=== PATIENT | female | born 1935 | race Caucasian/White ===

== ENCOUNTER 2023-05-21 13:52 | Inpatient (IN) | payer OTHER ==
[2023-05-21 14:26] VITALS: BMI 28.5
[2023-05-21] MEDS ORDERED: SODIUM CHLORIDE 0.9% 500 ML INFUS.BAG IV ONE (14:44)
[2023-05-21] MEDS ORDERED: PIPERACILLIN/TAZOB 4.5 GM 4.5 GM in DEXTROSE 5%-WATER 100 ML IVPB ONE (14:48)
[2023-05-21] MEDS ORDERED: ACETAMINOPHEN 1000 MG/100 ML BAG IVPB ONE (14:52)
[2023-05-21] MEDS ORDERED: VANCOMYCIN 1 GM in D5W (PRE-DOCKED) 1,000 MG/250 ML (RESTRICTED TO ID ONLY IVPB ONE (14:52)
[2023-05-21 15:51] LABS: VENOUS BASE EXCESS 2.5 mmol/L (-2-2); VENOUS PCO2 45.7 mmHg (38-52); VENOUS PH 7.4 (7.310-7.410)
[2023-05-21 15:53] LABS: BASO % 0.2 % (0-2.0); EOS % 1.3 % (0-4.5); HEMATOCRIT 26.7 % (32.4-45.2); HEMOGLOBIN 8.5 GM/dL (10.7-15.3); LYMPH % 18.2 % (8-40); MCH 23.9 pg (25.7-33.7); MCHC 31.7 g/dl (32.0-36.0); MEAN CELL VOLUME 75.4 fl (80-96); MEAN PLT VOLUME 8.3 fl (7.5-11.1); MONO % 10.6 % (3.8-10.2); NEUT % 69.7 % (42.8-82.8); PLATELET COUNT 274 10^3/uL (134-434); RBC 3.54 M/mm3 (3.60-5.2); RDW 15.5 % (11.6-15.6); WHITE BLOOD COUNT 7.8 K/mm3 (4.0-10.0)
[2023-05-21] MEDS ORDERED: ACETAMINOPHEN INJECTION 100 ML IVPB ONE (15:53)
[2023-05-21] MEDS ORDERED: PIPERACILLIN/TAZOB 3.375 GM 3.375 GM/50 ML BAG IVPB ONE (15:54)
[2023-05-21] MEDS ORDERED: PIPERACILLIN/TAZOB 4.5 GM 4.5 GM/100 ML BAG IVPB ONE (15:55)
[2023-05-21 16:21] LABS: INR 1.06 (0.83-1.09); PROTHROMBIN TIME (PATIENT) 12.3 SEC (9.7-13.0)
[2023-05-21 16:23] LABS: EPI CELLS 7 /uL (0-25.1); HYALINE CASTS 0 /uL (0-3.1); PH,URINE 5.5 (5.0-8.0); URINE APPEARANCE CLEAR; URINE BACTERIA 7894 /uL (0-1359); URINE BILIRUBIN NEGATIVE (NEGATIVE); URINE COLOR DK YELLOW; URINE GLUCOSE (UA) 3+ (NEGATIVE); URINE KETONE NEGATIVE (NEGATIVE); URINE LEUK ESTERASE NEGATIVE (NEGATIVE); URINE NITRITE POSITIVE (NEGATIVE); URINE PROTEIN NEGATIVE (NEGATIVE); URINE RBC 8 /uL (0-23.9); URINE UROBILINOGEN 0.2 mg/dL (0.2-1.0); URINE WBC 23 /uL (0-25.8)
[2023-05-21 16:24] LABS: ACTIVATED PTT 28.9 SECONDS (25.2-36.5)
[2023-05-21 16:30] LABS: POTASSIUM 4.3 mmol/L (3.5-5.1)
[2023-05-21 16:31] LABS: CALCIUM 8.9 mg/dL (8.5-10.1)
[2023-05-21 16:32] LABS: ALBUMIN 2.6 g/dl (3.4-5.0); BLOOD UREA NITROGEN 16.2 mg/dL (7-18)
[2023-05-21 16:35] LABS: CREATININE 0.7 mg/dL (0.55-1.3)
[2023-05-21 16:36] LABS: BILIRUBIN,TOTAL 0.2 mg/dL (0.2-1); TOT PROT 6.6 g/dl (6.4-8.2)
[2023-05-21] MEDS ORDERED: VANCOMYCIN/WATER FOR INJ (PEG) 1,000 MG/200 ML BAG IVPB ONE ×2 (18:07→18:46)
[2023-05-21] MEDS ORDERED: LIDOCAINE 1%/EPI 1:100000 (50 ML MULTI DOSE VIAL) INF ONE (18:32)
[2023-05-21] MEDS ORDERED: LIDOCAINE 1%/EPI 1:100000 (50 ML MULTI DOSE VIAL) ONE (18:42)
[2023-05-21] MEDS: ATORVASTATIN CA 80 MG TABLET (FP) PO SCH (23:47)
[2023-05-21] MEDS: risperiDONE 0.5 MG TABLET PO SCH (23:47)
[2023-05-22] MEDS: PIPERACILLIN/TAZOB 4.5 GM 4.5 GM in DEXTROSE 5%-WATER 100 ML IVPB SCH ×3 (02:32→17:02)
[2023-05-22] MEDS: INSULIN SLIDING SCALE (NOVOLOG) 1 VIAL SQ SCH ×4 (06:07→21:46)
[2023-05-22] MEDS ORDERED: VANCOMYCIN/WATER FOR INJ (PEG) 1,000 MG/200 ML BAG IVPB SCH (07:00)
[2023-05-22 09:49] LABS: BASO % 0.2 % (0-2.0); EOS % 3.4 % (0-4.5); HEMATOCRIT 25.3 % (32.4-45.2); HEMOGLOBIN 8.2 GM/dL (10.7-15.3); LYMPH % 26.3 % (8-40); MCH 24.5 pg (25.7-33.7); MCHC 32.2 g/dl (32.0-36.0); MEAN PLT VOLUME 8.3 fl (7.5-11.1); MONO % 7.3 % (3.8-10.2); NEUT % 62.8 % (42.8-82.8); PLATELET COUNT 276 10^3/uL (134-434); RBC 3.33 M/mm3 (3.60-5.2); RDW 15.9 % (11.6-15.6); WHITE BLOOD COUNT 6.6 K/mm3 (4.0-10.0)
[2023-05-22] MEDS: MAGNESIUM OXIDE 400 MG TABLET (FP) PO SCH (10:05)
[2023-05-22] MEDS: ENALAPRIL MALEATE 10 MG TABLET PO SCH (10:05)
[2023-05-22] MEDS: VITAMIN B COMPLEX W/C COMBO TABLET (FP) PO SCH (10:05)
[2023-05-22] MEDS: ATENOLOL 25 MG TABLET (FP) PO SCH (10:05)
[2023-05-22 10:08] LABS: POTASSIUM 4.1 mmol/L (3.5-5.1)
[2023-05-22 10:10] LABS: ALBUMIN 2.4 g/dl (3.4-5.0); CALCIUM 8.7 mg/dL (8.5-10.1)
[2023-05-22 10:11] LABS: BLOOD UREA NITROGEN 10.4 mg/dL (7-18)
[2023-05-22 10:13] LABS: CREATININE 0.6 mg/dL (0.55-1.3)
[2023-05-22 10:15] LABS: BILIRUBIN,TOTAL 0.3 mg/dL (0.2-1); TOT PROT 6.1 g/dl (6.4-8.2)
[2023-05-22] MEDS ORDERED: ACETAMINOPHEN 1000 MG/100 ML BAG IVPB PRN (11:54)
[2023-05-22] MEDS ORDERED: INSULIN (LEVEMIR) 100 UNITS/ML UNITS SQ ONE (12:00)
[2023-05-22] MEDS: ENOXAPARIN NA (PORCINE) 40 MG/0.4 ML DISP.SYRIN SQ SCH (13:38)
[2023-05-22 16:10] LABS: POTASSIUM 4.1 mmol/L (3.5-5.1)
[2023-05-22 16:12] LABS: CALCIUM 8.4 mg/dL (8.5-10.1)
[2023-05-22 16:13] LABS: ALBUMIN 2.2 g/dl (3.4-5.0)
[2023-05-22 16:16] LABS: CREATININE 0.9 mg/dL (0.55-1.3)
[2023-05-22 16:18] LABS: BILIRUBIN,TOTAL 0.2 mg/dL (0.2-1)
[2023-05-22] MEDS: VANCOMYCIN/WATER FOR INJ (PEG) 1,000 MG/200 ML BAG IVPB SCH (18:49)
[2023-05-22] MEDS: ATORVASTATIN CA 80 MG TABLET (FP) PO SCH (21:46)
[2023-05-22] MEDS: risperiDONE 0.5 MG TABLET PO SCH (21:46)
[2023-05-23] MEDS: PIPERACILLIN/TAZOB 4.5 GM 4.5 GM in DEXTROSE 5%-WATER 100 ML IVPB SCH ×3 (02:23→17:42)
[2023-05-23] MEDS: VANCOMYCIN/WATER FOR INJ (PEG) 1,000 MG/200 ML BAG IVPB SCH ×2 (05:52→18:25)
[2023-05-23 05:59] VITALS: RESP 18
[2023-05-23] MEDS: ACETAMINOPHEN 500 MG TABLET (FP) PO PRN ×2 (06:27→22:18)
[2023-05-23] MEDS: INSULIN SLIDING SCALE (NOVOLOG) 1 VIAL SQ SCH ×4 (06:28→22:08)
[2023-05-23] MEDS ORDERED: INSULIN (LEVEMIR) 100 UNITS/ML UNITS SQ SCH (07:00)
[2023-05-23 09:44] LABS: BASO % 0.5 % (0-2.0); EOS % 3.6 % (0-4.5); HEMATOCRIT 26.7 % (32.4-45.2); HEMOGLOBIN 8.4 GM/dL (10.7-15.3); LYMPH % 28.9 % (8-40); MCH 23.8 pg (25.7-33.7); MCHC 31.4 g/dl (32.0-36.0); MEAN PLT VOLUME 8.4 fl (7.5-11.1); MONO % 8.8 % (3.8-10.2); NEUT % 58.2 % (42.8-82.8); PLATELET COUNT 285 10^3/uL (134-434); RBC 3.51 M/mm3 (3.60-5.2); RDW 15.7 % (11.6-15.6); WHITE BLOOD COUNT 5.6 K/mm3 (4.0-10.0)
[2023-05-23] MEDS: ENOXAPARIN NA (PORCINE) 40 MG/0.4 ML DISP.SYRIN SQ SCH (09:49)
[2023-05-23] MEDS: ATENOLOL 25 MG TABLET (FP) PO SCH (09:49)
[2023-05-23] MEDS: MAGNESIUM OXIDE 400 MG TABLET (FP) PO SCH (09:49)
[2023-05-23] MEDS: ENALAPRIL MALEATE 10 MG TABLET PO SCH (09:50)
[2023-05-23] MEDS: VITAMIN B COMPLEX W/C COMBO TABLET (FP) PO SCH (09:50)
[2023-05-23 10:02] LABS: POTASSIUM 4.1 mmol/L (3.5-5.1)
[2023-05-23 10:10] LABS: ALBUMIN 2.3 g/dl (3.4-5.0); BLOOD UREA NITROGEN 10.9 mg/dL (7-18)
[2023-05-23 10:13] LABS: CREATININE 0.7 mg/dL (0.55-1.3)
[2023-05-23 10:15] LABS: BILIRUBIN,TOTAL 0.3 mg/dL (0.2-1); TOT PROT 6.2 g/dl (6.4-8.2)
[2023-05-23] MEDS ORDERED: INSULIN SLIDING SCALE (NOVOLOG) 1 VIAL SQ ONE (11:57)
[2023-05-23] MEDS: ATORVASTATIN CA 80 MG TABLET (FP) PO SCH (22:08)
[2023-05-24] MEDS: PIPERACILLIN/TAZOB 4.5 GM 4.5 GM in DEXTROSE 5%-WATER 100 ML IVPB SCH ×3 (01:15→17:01)
[2023-05-24] MEDS: risperiDONE 0.5 MG TABLET PO SCH ×2 (03:07→23:36)
[2023-05-24] MEDS: VANCOMYCIN/WATER FOR INJ (PEG) 1,000 MG/200 ML BAG IVPB SCH ×2 (06:25→17:02)
[2023-05-24] MEDS ORDERED: INSULIN (LEVEMIR) 100 UNITS/ML UNITS SQ SCH (07:00)
[2023-05-24] MEDS: INSULIN SLIDING SCALE (NOVOLOG) 1 VIAL SQ SCH ×4 (07:08→22:34)
[2023-05-24] MEDS: ENOXAPARIN NA (PORCINE) 40 MG/0.4 ML DISP.SYRIN SQ SCH (09:45)
[2023-05-24] MEDS: ENALAPRIL MALEATE 10 MG TABLET PO SCH (09:46)
[2023-05-24] MEDS: VITAMIN B COMPLEX W/C COMBO TABLET (FP) PO SCH (09:46)
[2023-05-24] MEDS: MAGNESIUM OXIDE 400 MG TABLET (FP) PO SCH (09:46)
[2023-05-24] MEDS: ATENOLOL 25 MG TABLET (FP) PO SCH (09:46)
[2023-05-24] MEDS ORDERED: INSULIN (LEVEMIR) 100 UNITS/ML UNITS SQ ONE ×2 (12:45→15:00)
[2023-05-24] MEDS: FLUCONAZOLE 100 MG TABLET (UD) PO SCH (14:06)
[2023-05-24] MEDS: ATORVASTATIN CA 80 MG TABLET (FP) PO SCH (22:35)
[2023-05-24] MEDS: INSULIN (LEVEMIR) 100 UNITS/ML UNITS SQ SCH (23:07)
[2023-05-25] MEDS ORDERED: PIPERACILLIN/TAZOBACTAM 4.5 GM VIAL IVPB ONE (01:25)
[2023-05-25] MEDS: PIPERACILLIN/TAZOB 4.5 GM 4.5 GM in DEXTROSE 5%-WATER 100 ML IVPB SCH ×2 (01:29→10:08)
[2023-05-25] MEDS: VANCOMYCIN/WATER FOR INJ (PEG) 1,000 MG/200 ML BAG IVPB SCH (06:14)
[2023-05-25] MEDS: INSULIN (LEVEMIR) 100 UNITS/ML UNITS SQ SCH ×2 (08:26→23:08)
[2023-05-25] MEDS: INSULIN SLIDING SCALE (NOVOLOG) 1 VIAL SQ SCH ×4 (08:26→23:09)
[2023-05-25] MEDS: ATENOLOL 25 MG TABLET (FP) PO SCH (10:02)
[2023-05-25] MEDS: ENOXAPARIN NA (PORCINE) 40 MG/0.4 ML DISP.SYRIN SQ SCH (10:02)
[2023-05-25] MEDS: VITAMIN B COMPLEX W/C COMBO TABLET (FP) PO SCH (10:03)
[2023-05-25] MEDS: FLUCONAZOLE 100 MG TABLET (UD) PO SCH (10:03)
[2023-05-25] MEDS: ENALAPRIL MALEATE 10 MG TABLET PO SCH (10:04)
[2023-05-25] MEDS: MAGNESIUM OXIDE 400 MG TABLET (FP) PO SCH (10:08)
[2023-05-25] MEDS: AMPICILLIN NA/SULBACTAM NA 3 GM in SODIUM CHLORIDE 100 ML IVPB SCH ×2 (14:22→23:08)
[2023-05-25] MEDS: risperiDONE 0.5 MG TABLET PO SCH (22:45)
[2023-05-25] MEDS: ATORVASTATIN CA 80 MG TABLET (FP) PO SCH (23:09)
[2023-05-26] MEDS: AMPICILLIN NA/SULBACTAM NA 3 GM in SODIUM CHLORIDE 100 ML IVPB SCH ×3 (02:28→15:22)
[2023-05-26] MEDS: INSULIN (LEVEMIR) 100 UNITS/ML UNITS SQ SCH (07:38)
[2023-05-26] MEDS: INSULIN SLIDING SCALE (NOVOLOG) 1 VIAL SQ SCH ×2 (07:38→12:06)
[2023-05-26 09:08] LABS: BASO % 0.6 % (0-2.0); EOS % 2.7 % (0-4.5); HEMATOCRIT 27.3 % (32.4-45.2); HEMOGLOBIN 8.8 GM/dL (10.7-15.3); LYMPH % 31.6 % (8-40); MCH 23.7 pg (25.7-33.7); MCHC 32.2 g/dl (32.0-36.0); MEAN CELL VOLUME 73.6 fl (80-96); MEAN PLT VOLUME 7.4 fl (7.5-11.1); MONO % 9.1 % (3.8-10.2); PLATELET COUNT 315 10^3/uL (134-434); RBC 3.71 M/mm3 (3.60-5.2); RDW 15.6 % (11.6-15.6); WHITE BLOOD COUNT 5.7 K/mm3 (4.0-10.0)
[2023-05-26 09:53] LABS: BLOOD UREA NITROGEN 14.5 mg/dL (7-18); CALCIUM 9.5 mg/dL (8.5-10.1)
[2023-05-26 09:54] LABS: ALBUMIN 2.7 g/dl (3.4-5.0)
[2023-05-26 09:57] LABS: CREATININE 0.6 mg/dL (0.55-1.3)
[2023-05-26 09:58] LABS: BILIRUBIN,TOTAL 0.3 mg/dL (0.2-1)
[2023-05-26 09:59] LABS: TOT PROT 6.5 g/dl (6.4-8.2)
[2023-05-26] MEDS: ENOXAPARIN NA (PORCINE) 40 MG/0.4 ML DISP.SYRIN SQ SCH (10:18)
[2023-05-26] MEDS: MAGNESIUM OXIDE 400 MG TABLET (FP) PO SCH (10:19)
[2023-05-26] MEDS: ATENOLOL 25 MG TABLET (FP) PO SCH (10:19)
[2023-05-26] MEDS: VITAMIN B COMPLEX W/C COMBO TABLET (FP) PO SCH (10:19)
[2023-05-26] MEDS: FLUCONAZOLE 100 MG TABLET (UD) PO SCH (10:19)
[2023-05-26] MEDS: ENALAPRIL MALEATE 10 MG TABLET PO SCH (10:20)
[2023-05-26] MEDS ORDERED: POLYETHYLENE GLYCOL (HEALTHYLAX) 3350 17 GM PACKET PO ONE (13:00)
[2023-05-26 15:19] VITALS: BP 128/51; PULSE 67; TEMP 99.4
== END 2023-05-26 17:52 | disposition home or self-care (01) | DRG 746 ==
LOC: JER 13:52 → JERBED 18:25 → J5S 21:42
PROVIDERS: ADMIT Internal Medicine; ATTEND Internal Medicine
PROC: 0U9MXZZ Drainage of Vulva, External Approach (ICD-10-PCS; principal; 2023-05-21)
DX: N76.4 Abscess of vulva (principal); N39.0 Urinary tract infection, site not specified; N76.2 Acute vulvitis; G30.9 Alzheimer's disease, unspecified; F02.80 Dementia in other diseases classified elsewhere, unspecified severity, without behavioral disturbance, psychotic disturbance, mood disturbance, and anxiety; I10 Essential (primary) hypertension; E11.9 Type 2 diabetes mellitus without complications; D64.9 Anemia, unspecified; B96.20 Unspecified Escherichia coli [E. coli] as the cause of diseases classified elsewhere; R50.9 Fever, unspecified; N28.1 Cyst of kidney, acquired
CPT/HCPCS: 0241U-QW; 36415; 71045-TC-FY; 74177-TC; 80053; 81003; 82550; 82553; 82803; 82962; 83036; 83605; 84484; 85025; 85610; 85651; 85730; 86140; 86850; 86900; 86901; 87040; 87070; 87086; 87186; 87205; 93005; 93010; 99285-25; G0480; Q9967